=== PATIENT | female | born 2000 ===

== ENCOUNTER 2023-05-08 15:14 | Emergency (ER) | payer MEDICAID, SELFPAY ==
[2023-05-08 15:16] VITALS: BP 142/86; PULSE 130; RESP 22; TEMP 37.2; O2SAT 98; BMI 45.6
--- NOTE | 2023-05-08 15:18 | ED_ITS ---
HPI - URI/Sore Throat General Chief Complaint: Chest Pain Stated Complaint: Flu like syptoms/body aches Related Data Allergies Allergy/AdvReac Type Severity Reaction Status Date / Time No Known Allergies Allergy Verified 05/08/23 15:23 [facility] Social History Social History Advance Directives: No Advance Directives Information Provided: No Physical Exam 2 Vital Signs: Vital Signs: Last Vital Signs Temp 99 F 05/08/23 15:16 Pulse 130 H 05/08/23 15:16 Resp 22 H 05/08/23 15:16 BP 142/86 H 05/08/23 15:16 Pulse Ox 98 05/08/23 15:16 O2 Del Method Room Air 05/08/23 15:16 BMI result Body Mass Index 45.6 Course Course Course Narrative: RMTeri: 23 year-old F w/ PMHx presenting to the ED c/o palpitations, chest pain, dizziness/lightheaded w/standing, headache, feeling hot , sore throat, SOB x5 days. +sick contacts. Also unsure if shes Tachycardic 130's in triage EKG, Labs, viral testing, rapid strep, CXR ordered Full HPI, ROS and PE to be performed by primary ED provider. Medical Decision Making Lab Data 05/08/23 19:48 05/08/23 19:48 Labs: Lab Results 05/08/23 Range/Units 19:48 WBC 9.5 (4.8-10.8) X10*3/uL RBC 6.23 H (4.20-5.50) X10*6/uL Hgb 14.9 (12.0-16.0) g/dl Hct 46.5 (37.0-47.0) % MCV 74.6 L (80.0-98.0) fL MCH 23.9 L (27.0-33.0) pg MCHC 32.0 (31.0-35.0) g/dl RDW 17.7 H (11.0-16.0) % Plt Count 219 (160-400) X10*3/uL MPV 10.1 (9.4-12.3) fL Immature Gran % (Auto) 0.4 (0.0-0.4) % Neut % (Auto) 88.5 H (45-73) % Lymph % (Auto) 5.1 L (20-40) % [place] % (Auto) 5.7 (2-11) % Eos % (Auto) 0.0 (0-4) % Baso % (Auto) 0.3 (0-2) % Lymph # (Auto) 0.5 L (1.2-4.9) X10*3/uL [place] # (Auto) 0.5 (0.1-1.2) X10*3/uL Eos # (Auto) 0.0 (0.0-0.4) X10*3/uL Baso # (Auto) 0.0 (0.0-0.2) X10*3/uL Abs Immat Gran (auto) 0.04 H (0.00-0.03) X10*3/uL Absolute Neuts (auto) 8.4 H (2.0-8.3) x10*3/uL Absolute Nucleated RBC 0.000 (0.0-0.012) X10*3/uL Nucleated RBC % (auto) 0.0 (0.0-0.2) /100WBC PT 15.0 H (11.1-13.3) SEC INR 1.2 H (0.9-1.1) Sodium 135 (135-145) mmol/L Potassium 3.9 (3.3-5.1) mmol/L Chloride 101 (96-108) mmol/L Carbon Dioxide 22 (22-29) mmol/L Anion Gap 16 (12-20) BUN 10 (9-16) mg/dL Creatinine 0.76 (0.5-1.4) mg/dL Estim Creat Clear Calc 139.7 Estimated GFR > 60 Random Glucose 93 (60-115) mg/dL Calcium 10.0 (8.4-10.2) mg/dL Magnesium 2.0 (1.6-2.6) mg/dL Total Bilirubin 0.4 (0.0-1.0) mg/dL Direct Bilirubin 0.2 (0.0-0.5) mg/dL AST 21 (5-31) U/L ALT 11 (0-31) U/L Alkaline Phosphatase 100 (39-117) U/L Troponin I High Sens < 2.7 (<3.5-17.0) ng/L Total Protein 9.0 H (6.5-8.0) g/dL Albumin 4.8 (3.5-5.0) g/dL TSH 0.42 (0.32-4.0) uIU/mL Beta HCG, Quant < 2 mIU/mL COVID-19 (SHEREEN) Negative (Negative) COVID-19 Clin Com See Note Influenza Type A (MANNY) Positive A (Negative) Influenza Type B (MANNY) Negative (Negative) Influenza A & B Note See Note S. pyogenes GrpA MANNY Negative (Negative) Discharge Plan Discharge Clinical Impression: Palpitations Patient Disposition: Left W/O Completing Treatment Discharge Date/Time: 05/08/23 21:47
--- NOTE | 2023-05-08 15:23 | ECG_ITS ---
Test Reason : TACHYCARDIA Blood Pressure : / mmHG Vent. Rate : 123 BPM Atrial Rate : 123 BPM P-R Int : 150 ms QRS Dur : 068 ms QT Int : 292 ms P-R-T Axes : 023 -11 008 degrees QTc Int : 418 ms Sinus tachycardia Cannot rule out Anterior infarct , age undetermined Abnormal ECG No previous ECGs available Referred By: Catherine Mariscal Electronically Signed By:Seb Morton
[2023-05-08 19:57] LABS: MANUAL DIFF FLAG NO
[2023-05-08 20:04] LABS: Basophils Percent Auto 0.3 % (0-2); Hematocrit 46.5 % (37.0-47.0); Hemoglobin 14.9 g/dl (12.0-16.0); Imm Gran Abs Auto 0.04 X10*3/uL (0.00-0.03); Imm Gran Pct Auto 0.4 % (0.0-0.4); Lymphocytes Absolute Auto 0.5 X10*3/uL (1.2-4.9); Lymphocytes Percent Auto 5.1 % (20-40); Mean Corpuscular Hemoglobin 23.9 pg (27.0-33.0); Mean Corpuscular Volume 74.6 fL (80.0-98.0); Mean Platelet Volume 10.1 fL (9.4-12.3); Monocytes Absolute Auto 0.5 X10*3/uL (0.1-1.2); Monocytes Percent Auto 5.7 % (2-11); Neutrophils Absolute Auto 8.4 x10*3/uL (2.0-8.3); Neutrophils Percent Auto 88.5 % (45-73); Platelet Count 219 X10*3/uL (160-400); Red Blood Count 6.23 X10*6/uL (4.20-5.50); Red Cell Distribution Width 17.7 % (11.0-16.0); White Blood Count 9.5 X10*3/uL (4.8-10.8)
[2023-05-08 20:10] LABS: INTERNATIONAL NORM RATIO 1.2 (0.9-1.1)
[2023-05-08 20:19] LABS: IDNOW Serial# 58CA691E; Strep A Nucleic Acid Negative (Negative)
[2023-05-08 20:20] LABS: IDNOW Serial# 16C4AD1C; Influenza A Positive (Negative); Influenza B2 Negative (Negative)
[2023-05-08 20:25] LABS: Alanine Aminotransferase 11 U/L (0-31); Albumin Level 4.8 g/dL (3.5-5.0); Alkaline Phosphatase 100 U/L (39-117); Anion Gap 16 (12-20); Aspartate Amino Transferase 21 U/L (5-31); Bilirubin Direct 0.2 mg/dL (0.0-0.5); Bilirubin Total 0.4 mg/dL (0.0-1.0); Blood Urea Nitrogen 10 mg/dL (9-16); Carbon Dioxide 22 mmol/L (22-29); Chloride 101 mmol/L (96-108); Creatinine Clr Calc Pharmacy 139.7; Estimated Glomerular Filt Rate > 60; Glucose Random 93 mg/dL (60-115); Potassium 3.9 mmol/L (3.3-5.1); Sodium 135 mmol/L (135-145)
[2023-05-08 20:26] LABS: HCG Quantitative < 2 mIU/mL
[2023-05-08 20:28] LABS: Troponin-I High Sensitivity < 2.7 ng/L (<3.5-17.0)
[2023-05-08 20:33] LABS: COVID-19 Test Negative (Negative); IDNOW Serial# 6674DD1D
[2023-05-08 20:41] LABS: TSH reflex Free T4 0.42 uIU/mL (0.32-4.0)
== END 2023-05-08 21:47 | disposition left against medical advice (07) ==
PROVIDERS: Physician Assistant; Emergency Provider Emergency Medicine
DX: R00.2 Palpitations (principal); J10.1 Influenza due to other identified influenza virus with other respiratory manifestations; Z11.52 Encounter for screening for COVID-19
CPT/HCPCS: 36415; 80048; 80076; 83735; 84443; 84484; 84702; 85025; 85610; 87502; 87635; 87651; 93005; 99281; 99283

== ENCOUNTER → 2023-05-08 15:23 | Outpatient (BNV) | payer MEDICAID, SELFPAY | PROVIDERS: Visit Provider Internal Medicine Cardiovascular Disease | DX: R00.0 Tachycardia, unspecified (principal); R94.31 Abnormal electrocardiogram [ECG] [EKG] | CPT/HCPCS: 93010 ==

== ENCOUNTER 2023-07-11 19:02 | Emergency (ER) | payer SELFPAY ==
--- NOTE | ~2023-07-11 | US_ITS ---
EXAMINATION: US OBSTETRICAL ULTRASOUND CLINICAL INFORMATION: Abdominal and pelvic pain COMPARISON: None available. LMP: 04/18/2023. Gestational age by maternal dates is 12 weeks 0 days. Estimated date of delivery by maternal dates is 01/23/2024. TECHNIQUE: Transabdominal imaging of pelvis is performed. FINDINGS: There is a single intrauterine gestational sac with visible embryo/fetus, and cardiac activity. There is no significant subchorionic hemorrhage or hematoma. HR: 181 beats per minute. CRL (crown rump length): 5.23 cm (12 weeks 0 days +/- 4 days). MARTIN (estimated date of delivery): 01/23/2024 +/- 4 days. MATERNAL ADNEXA: The right maternal ovary measures 2.3 x 2.1 x 2.1 cm. The left maternal ovary measures 2.0 x 2.0 x 1.5 cm. There is no significant maternal adnexal mass. No maternal pelvic ascites. US/US OB <= 14 weeks fetus IMPRESSION: 1. Single intrauterine gestation with ultrasound gestational age of 12 weeks 0 days +/- 4 days. 2. Estimated date of delivery is 01/23/2024 +/- 4 days. Findings are concordant with clinical ultrasound gestational age and MARTIN. 3. No maternal adnexal mass or pelvic ascites.
[2023-07-11 19:48] VITALS: BP 132/74; PULSE 94; RESP 16; TEMP 36.8; O2SAT 99; BMI 44.5
--- NOTE | 2023-07-11 19:51 | ED.GENADULT ---
HPI - General Adult General Chief complaint: Chest Pain Stated complaint: headache, weakness Related Data Allergies Allergy/AdvReac Type Severity Reaction Status Date / Time No Known Allergies Allergy Verified 05/08/23 15:23 [facility] Social History Social History Advance Directives: No Advance Directives Information Provided: No Physical Exam ED Vital Signs: Vital Signs - 24 hr 07/11/23 19:48 07/11/23 23:41 Temperature 98.3 F 98.0 F Pulse Rate 94 82 Respiratory Rate 16 16 Blood Pressure 132/74 135/72 Pulse Oximetry 99 98 Oxygen Delivery Method Room Air Room Air BMI result Body Mass Index 44.5 Course Course Course Narrative: This is an RME: Additional HPI, ROS, PE not included below will be deferred to primary provider. This is a 80-nymh-wve-female, , 12 weeks , who presents to the emergency department with a complaints of severe headache, palpations, chest pain, SOB, and lower abdominal pain since today. Reporting that she had her ultrasound a week or so ago and was normal. BP 132/74. No vaginal bleeding or discharge. No urinary symptoms. Plan: Labs, EKG, viral swabs Reevaluation(s) Reevaluation #1: pt left without completing treatment. Medical Decision Making Lab Data 07/11/23 20:18 07/11/23 20:18 Labs: Lab Results 07/11/23 Range/Units 20:18 WBC 9.7 (4.8-10.8) X10*3/uL RBC 4.75 D (4.20-5.50) X10*6/uL Hgb 11.6 L D (12.0-16.0) g/dl Hct 36.5 L D (37.0-47.0) % MCV 76.8 L (80.0-98.0) fL MCH 24.4 L (27.0-33.0) pg MCHC 31.8 (31.0-35.0) g/dl RDW 16.7 H (11.0-16.0) % Plt Count 208 (160-400) X10*3/uL MPV 9.6 (9.4-12.3) fL Immature Gran % (Auto) 0.2 (0.0-0.4) % Neut % (Auto) 74.2 H (45-73) % Lymph % (Auto) 19.3 L (20-40) % [place] % (Auto) 5.6 (2-11) % Eos % (Auto) 0.4 (0-4) % Baso % (Auto) 0.3 (0-2) % Lymph # (Auto) 1.9 (1.2-4.9) X10*3/uL [place] # (Auto) 0.5 (0.1-1.2) X10*3/uL Eos # (Auto) 0.0 (0.0-0.4) X10*3/uL Baso # (Auto) 0.0 (0.0-0.2) X10*3/uL Abs Immat Gran (auto) 0.02 (0.00-0.03) X10*3/uL Absolute Neuts (auto) 7.2 (2.0-8.3) x10*3/uL Absolute Nucleated RBC 0.000 (0.0-0.012) X10*3/uL Nucleated RBC % (auto) 0.0 (0.0-0.2) /100WBC Sodium 138 (135-145) mmol/L Potassium 3.6 (3.3-5.1) mmol/L Chloride 106 (96-108) mmol/L Carbon Dioxide 24 (22-29) mmol/L Anion Gap 12 (12-20) BUN 9 (9-16) mg/dL Creatinine 0.63 (0.5-1.4) mg/dL Estim Creat Clear Calc 166.0 Estimated GFR > 60 Random Glucose 84 (60-115) mg/dL Calcium 9.2 D (8.4-10.2) mg/dL Magnesium 1.9 (1.6-2.6) mg/dL Total Bilirubin 0.2 (0.0-1.0) mg/dL Direct Bilirubin < 0.2 (0.0-0.5) mg/dL AST 12 (5-31) U/L ALT 6 (0-31) U/L Alkaline Phosphatase 72 (39-117) U/L Troponin I High Sens < 2.7 (<3.5-17.0) ng/L Total Protein 7.0 (6.5-8.0) g/dL Albumin 3.7 (3.5-5.0) g/dL Lipase 9 (8-78) U/L Beta HCG, Quant 70371 mIU/mL Urine Color Yellow Urine Appearance Cloudy Urine pH 6.0 (5.0-9.0) Ur Specific [place] >= 1.030 H (1.005-1.025) Urine Protein Negative (Neg-Trace) mg/dL Urine Glucose (UA) Negative (Negative) mg/dL Urine Ketones 15 (Negative) mg/dL Urine Blood Negative (Negative) Urine Nitrite Negative (Negative) Ur Leukocyte Esterase Negative (Negative) Influenza Type A (PCR) NEGATIVE (Negative) Influenza Type B (PCR) NEGATIVE (Negative) RSV RNA Qual (PCR) NEGATIVE (Negative) SARS-CoV-2 RNA (RT-PCR) NEGATIVE (Negative) Discharge Plan Discharge Clinical Impression: Headache Patient Disposition: Left W/O Completing Treatment Discharge Date/Time: 07/12/23 06:05
--- NOTE | 2023-07-11 19:54 | ECG_ITS ---
Test Reason : paplitations Blood Pressure : / mmHG Vent. Rate : 081 BPM Atrial Rate : 081 BPM P-R Int : 164 ms QRS Dur : 072 ms QT Int : 354 ms P-R-T Axes : 024 -06 012 degrees QTc Int : 411 ms Normal sinus rhythm Minimal voltage criteria for LVH, may be normal variant ( R in aVL ) Cannot rule out Anterior infarct (cited on or before 08-MAY-2023) Abnormal ECG When compared with ECG of 08-MAY-2023 15:33, Vent. rate has decreased BY 42 BPM Referred By: Yoko Parks Electronically Signed By:Seb Morton
--- NOTE | 2023-07-11 20:14 | MHC.EDTECH ---
EKG taken per order and signed by provider,labs,sars/flu/rsv obtained and sent to lab.
[2023-07-11 20:24] LABS: MANUAL DIFF FLAG NO
[2023-07-11 20:30] LABS: Appearance Urine Cloudy; Color Urine Yellow; Glucose Urine UA Negative (Negative); Leukocyte Esterase Urine Negative (Negative); Nitrite Urine Negative (Negative); Specific Gravity - Urine >= 1.030 (1.005-1.025); Urine Blood Negative (Negative); Urine Ketones 15 mg/dL (Negative); Urine Protein Negative (Neg-Trace)
[2023-07-11 20:32] LABS: Basophils Percent Auto 0.3 % (0-2); Eosinophils Percent Auto 0.4 % (0-4); Hematocrit 36.5 % (37.0-47.0); Hemoglobin 11.6 g/dl (12.0-16.0); Imm Gran Abs Auto 0.02 X10*3/uL (0.00-0.03); Imm Gran Pct Auto 0.2 % (0.0-0.4); Lymphocytes Absolute Auto 1.9 X10*3/uL (1.2-4.9); Lymphocytes Percent Auto 19.3 % (20-40); Mean Corpuscular HGB Conc 31.8 g/dl (31.0-35.0); Mean Corpuscular Hemoglobin 24.4 pg (27.0-33.0); Mean Corpuscular Volume 76.8 fL (80.0-98.0); Mean Platelet Volume 9.6 fL (9.4-12.3); Monocytes Absolute Auto 0.5 X10*3/uL (0.1-1.2); Monocytes Percent Auto 5.6 % (2-11); Neutrophils Absolute Auto 7.2 x10*3/uL (2.0-8.3); Neutrophils Percent Auto 74.2 % (45-73); Platelet Count 208 X10*3/uL (160-400); Red Blood Count 4.75 X10*6/uL (4.20-5.50); Red Cell Distribution Width 16.7 % (11.0-16.0); White Blood Count 9.7 X10*3/uL (4.8-10.8)
[2023-07-11 20:42] LABS: Alanine Aminotransferase 6 U/L (0-31); Albumin Level 3.7 g/dL (3.5-5.0); Alkaline Phosphatase 72 U/L (39-117); Anion Gap 12 (12-20); Aspartate Amino Transferase 12 U/L (5-31); Bilirubin Direct < 0.2 mg/dL (0.0-0.5); Bilirubin Total 0.2 mg/dL (0.0-1.0); Blood Urea Nitrogen 9 mg/dL (9-16); Calcium 9.2 mg/dL (8.4-10.2); Carbon Dioxide 24 mmol/L (22-29); Chloride 106 mmol/L (96-108); Estimated Glomerular Filt Rate > 60; Glucose Random 84 mg/dL (60-115); Lipase 9 U/L (8-78); Magnesium 1.9 mg/dL (1.6-2.6); Potassium 3.6 mmol/L (3.3-5.1); Sodium 138 mmol/L (135-145)
[2023-07-11 21:09] LABS: Influenza A PCR NEGATIVE (Negative); Influenza B PCR NEGATIVE (Negative); Resp Syncy Virus RNA Qual PCR NEGATIVE (Negative); SARS COV2 PCR INHOUSE NEGATIVE (Negative)
[2023-07-11 21:27] LABS: Troponin-I High Sensitivity < 2.7 ng/L (<3.5-17.0)
[2023-07-11 21:46] LABS: HCG Quantitative 33839 mIU/mL
[2023-07-11 23:41] VITALS: BP 135/72; PULSE 82; RESP 16; TEMP 36.7; O2SAT 98
== END 2023-07-12 06:05 | disposition left against medical advice (07) ==
PROVIDERS: Physician Assistant Medical; Emergency Provider Emergency Medicine
DX: R51.9 Headache, unspecified (principal); O26.891 Other specified pregnancy related conditions, first trimester; Z3A.12 12 weeks gestation of pregnancy; R00.2 Palpitations; R07.9 Chest pain, unspecified; R06.02 Shortness of breath; R10.30 Lower abdominal pain, unspecified; Z11.52 Encounter for screening for COVID-19; Z20.828 Contact with and (suspected) exposure to other viral communicable diseases
CPT/HCPCS: 0241U; 36415; 76801; 80048; 80076; 81003; 83690; 83735; 84484; 84702; 85025; 93005; 99283; 99284

== ENCOUNTER → 2023-07-11 19:54 | Outpatient (BNV) | payer SELFPAY | PROVIDERS: Emergency Provider Emergency Medicine; Visit Provider Internal Medicine Cardiovascular Disease | DX: R94.31 Abnormal electrocardiogram [ECG] [EKG] (principal) | CPT/HCPCS: 93010 ==